=== PATIENT | female | born 1995 | race Caucasian/White ===

== ENCOUNTER 2020-08-17 07:25 | Emergency (ER) | payer BC ==
--- NOTE | 2020-08-17 07:40 | EDM.PDOC ---
ED HPI GENERAL MEDICAL PROBLEM - General Chief Complaint: Lower Extremity Injury/Pain Stated Complaint: LEFT LEG PAIN Time Seen by Provider: 08/17/20 07:40 Source of Information: Reports: Patient History Limitations: Reports: No Limitations - History of Present Illness INITIAL COMMENTS - FREE TEXT/NARRATIVE: Tasha, 25-year-old female, slipped last evening while entering a car, "Rolling her ankle." Describes an eversion injury of the ankle with tenderness to the distal lateral malleolus and into the lateral aspect of the foot. She denies any other injury or symptoms. No fever chills or exposure risk. Has been vaccinated against Covid 19. Onset Date: 08/16/20 Duration: Hour(s): Location: Reports: Lower Extremity, Left Quality: Reports: Burning, Pressure, Sharp Severity: Moderate Improves with: Reports: Immobilization Worsens with: Reports: Movement Context: Reports: Activity Associated Symptoms: Reports: No Other Symptoms - Related Data Allergies Allergy/AdvReac Type Severity Reaction Status Date / Time Quinolones Allergy Anaphylactic Verified 08/17/20 07:43 Shock Home Meds: Home Meds lisinopriL [Lisinopril] 5 mg PO DAILY 08/17/20 [History] Past Medical History HEENT History: Reports: Impaired Vision Cardiovascular History: Reports: Hypertension - Past Surgical History HEENT Surgical History: Reports: Adenoidectomy, Tonsillectomy Social & Family History - Family History Family Medical History: No Pertinent Family History Review of Systems - Review of Systems Review Of Systems: Comprehensive ROS is negative, except as noted in HPI. ED EXAM, GENERAL - Physical Exam Exam: See Below Free Text/Narrative:: Alert, oriented, in minimal distress. HEENT is negative to discharge or deformity. She speaks with no distress and has no labored respiratory effort. Pulses present. Focused examination to the left lower extremity with no tenderness to the proximal tibia-fibula nor deformity noted. There is mild edema to the ankle region predominantly the lateral aspect and over the foot. There is tenderness to the distal lateral malleolus with edema. There is also tenderness to the fifth tarsal metatarsal region. She is able to move her toes but limits the motion to the foot and ankle secondary of the discomfort and swelling. Denies any previous fracture or injury to the extremity Course - Vital Signs Last Recorded V/S: Last Vital Signs Temp 96.9 F 08/17/20 07:30 Pulse 106 H 08/17/20 07:30 Resp 14 08/17/20 07:30 BP 154/99 H 08/17/20 07:30 Pulse Ox 98 08/17/20 07:30 - Orders/Labs/Meds Orders: Active Orders 24 hr Category Date Time Status Ankle Min 3V Lt [CR] Stat Exams 08/17/20 07:45 Ordered Foot Comp Min 3V Lt [CR] Stat Exams 08/17/20 07:46 Ordered - Radiology Interpretation Free Text/Narrative:: No evidence of fracture or dislocation. Soft tissue swelling noted, over read pending. Departure - Departure Time of Disposition: 08:16 Disposition: Home, Self-Care 01 Condition: Good Clinical Impression: Ankle pain, left, Sprain and strain of ankle - Discharge Information *PRESCRIPTION DRUG MONITORING PROGRAM REVIEWED*: Not Applicable *COPY OF PRESCRIPTION DRUG MONITORING REPORT IN PATIENT EL: Not Applicable Instructions: Ankle Sprain, [id number] Referrals: Karin Pastrana MD [Primary Care Provider] - Forms: ED Department Discharge Additional Instructions: Ice, elevate, and limit your mobility for the next 24 to 48 hours. Wear the splint, as tight as comfortable to provide support in this time span. You may take ibuprofen and/or Tylenol for discomfort and to aid the swelling. Follow-up if not improving or worsening Sepsis Event Note (ED) - Evaluation Sepsis Screening Result: No Definite Risk - Focused Exam Vital Signs: Vital Signs Temp Pulse Resp BP Pulse Ox 08/17/20 07:30 96.9 F 106 H 14 154/99 H 98 - Problem List & Annotations (1) Ankle pain, left SNOMED Code(s): 155733261, 893160781 Code(s): M25.572 - PAIN IN LEFT ANKLE AND JOINTS OF LEFT FOOT Status: Acute Priority: High Current Visit: Yes Qualifiers: Chronicity: acute Qualified Code(s): M25.572 - Pain in left ankle and joints of left foot (2) Sprain and strain of ankle SNOMED Code(s): 132689472 Code(s): S93.409A - SPRAIN OF UNSP LIGAMENT OF UNSPECIFIED ANKLE, INIT ENCNTR; S96.919A - STRAIN OF UNSP MSL/TND AT ANK/FT LEVEL, UNSP FOOT, INIT Status: Acute Priority: High Current Visit: Yes - Problem List Review Problem List Initiated/Reviewed/Updated: Yes - My Orders Last 24 Hours: My Active Orders 08/17/20 07:45 Ankle Min 3V Lt [CR] Stat 08/17/20 07:46 Foot Comp Min 3V Lt [CR] Stat - Assessment/Plan Last 24 Hours: My Active Orders 08/17/20 07:45 Ankle Min 3V Lt [CR] Stat 08/17/20 07:46 Foot Comp Min 3V Lt [CR] Stat Plan: Ice, elevate, and limit your mobility for the next 24 to 48 hours. Wear the splint, as tight as comfortable to provide support in this time span. You may take ibuprofen and/or Tylenol for discomfort and to aid the swelling. Follow-up if not improving or worsening
--- NOTE | 2020-08-17 08:31 | CR ---
[id number] RAD/RAD Foot Left 3V Min EXAM: 3 VIEWS LEFT FOOT. INDICATION: FALL. COMPARISON: None. DISCUSSION: No fracture, dislocation or other acute osseous abnormality. IMPRESSION: 1. No acute osseous abnormalities. Beto Holden DO 08/17/20 [id number] Thank you for allowing us to participate in the care of your patient.
--- NOTE | 2020-08-17 08:51 | CR ---
[id number] RAD/RAD Ankle Left 3V Min EXAM: 3 VIEWS LEFT ANKLE. INDICATION: EVERSION,FALL COMPARISON: None. DISCUSSION: No fracture, dislocation or other acute osseous abnormality. Ankle mortise is maintained. IMPRESSION: 1. No acute osseous abnormalities. Beto Holden DO 08/17/20 [phone] Thank you for allowing us to participate in the care of your patient.
== END 2020-08-17 08:20 | disposition home or self-care (01) ==
LOC: KA.ED 07:25
DX: S93.402A Sprain of unspecified ligament of left ankle, initial encounter (principal); S96.912A Strain of unspecified muscle and tendon at ankle and foot level, left foot, initial encounter; I10 Essential (primary) hypertension; Z79.899 Other long term (current) drug therapy; Z88.8 Allergy status to other drugs, medicaments and biological substances; X50.9XXA Other and unspecified overexertion or strenuous movements or postures, initial encounter
CPT/HCPCS: 73610-LT; 73630-LT; 99283; 99283-25